=== PATIENT | male | born 1990 | race Caucasian/White ===

== ENCOUNTER 2021-06-28 19:13 | Emergency (ER) | payer OTHER ==
[~2021-06-28 19:13] MED LIST: BENTYL10 MG PO; COLESTID 1GM TAB1 GM PO; COZAAR50 MG PO; LIMBITROL PO; PRILOSEC20 MG PO
[2021-06-28 19:52] LABS: BASOPHIL 0.6 % (0-2); EOSINOPHIL 0.5 % (0-5); HCT 47.3 % (42.0-52.0); HGB 16.4 g/dl (13.2-18.0); LYMPHOCYTE 13.1 % (15-48); MCH 30.8 pg (25.0-31.0); MCHC 34.7 g/dL (32.0-36.0); MCV 88.9 fL (78.0-100.0); MONOCYTE 5.8 % (0-12); MPV 10.4 fL (6.0-9.5); NEUTROPHIL 79.6 % (41-80); NRBC 0; PLT 248 K/uL (150-400); RBC 5.32 M/uL (4.70-6.00); RDW 14.6 % (11.5-14.0); WBC 13.5 K/uL (4.0-10.5)
[2021-06-28 20:03] LABS: ALBUMIN 4.5 g/dL (3.4-5.0); BILIRUBIN - TOTAL 1.5 mg/dL (0.2-1.0); BUN/CREAT RATIO (CALC) 13.2 RATIO; CREATININE 0.68 mg/dL (0.67-1.17); TOTAL PROTEIN 8.5 g/dL (6.4-8.2)
[2021-06-28] MEDS ORDERED: NORCO 5-325 TA1 EACH PO (22:40)
[2021-06-28] MEDS ORDERED: PHENERGAN25 M1 PO (22:40)
== END 2021-06-28 22:57 | disposition home or self-care (01) ==
LOC: FER 19:13
PROVIDERS: Nurse Practitioner Family
DX: K85.90 Acute pancreatitis without necrosis or infection, unspecified (principal); Z88.1 Allergy status to other antibiotic agents; Z88.0 Allergy status to penicillin; Z88.8 Allergy status to other drugs, medicaments and biological substances
CPT/HCPCS: 36415; 80053; 83605; 83690; 85025; J2270; J2405; J7030; Q9967